=== PATIENT | female | born 1990 | race Caucasian/White ===

== ENCOUNTER 2018-09-20 05:08 | Emergency (ER) | payer OTHER ==
[~2018-09-20] VITALS: Ht 157.5 cm; Wt 48.9 kg
[2018-09-20 05:14] VITALS: BP 127/81; PULSE 74; RESP 18; Ht 157.5 cm; Wt 48.9 kg
[2018-09-20] MEDS ORDERED: ONDANSETRON (ODT) 4 MG TAB ODT STA (05:45)
--- NOTE | 2018-09-20 05:45 | ERD ---
ER Documentation Chief Complaint Chief Complaint shortness of breath x 3 hours. states been drinking etoh last night HPI Is a 27-year-old female patient who presents to the emergency room with complaint of awakening 2 hours ago with shortness of breath and some left-sided chest pain. Patient admits to drinking heavily the night before, also was being intimate with her s/o just before episode. Pt now states she feels fine and episode has resolved. Denies chronic medical problems. ROS All systems reviewed and are negative except as per history of present illness. Allergies Allergies: Coded Allergies: No Known Allergy (Unverified , 05/01/18) PMhx/Soc Hx Alcohol Use: Yes Hx Substance Use: No Hx Tobacco Use: No FmHx Family History: No diabetes, No coronary disease, No other Physical Exam Vitals Vital Signs Date Temp Pulse Resp B/P (MAP) Pulse Ox O2 O2 Flow FiO2 Time Delivery Rate 09/20/18 97.6 74 18 127/81 100 05:14 (96) Physical Exam Const: No acute distress Head: Atraumatic Eyes: Normal Conjunctiva, PERRL ENT: Normal External Ears, TM clear, no nasal discharge, Pharynx pink without petechiae, exudate, or lesions Neck: Full range of motion. No meningismus. No lymphadenopathy, no thyromegaly, no cervical spinal tenderness Resp: Clear to auscultation bilaterally, no rales, rhonchi, or wheezing Cardio: Regular rate and rhythm, no murmurs Abd: Soft, non tender, non distended. 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 I kept the patient and/or family informed of laboratory and diagnostic imaging results throughout the ED course. EKG: Read by Dr. Dr. Mcintyre, attending physician. EKG shows normal sinus rhythm at a rate of 66 bpm. No arrhythmias, acute ST elevations or T wave changes were noted. MEDICATIONS GIVEN: Zofran, PO fluids MDM: Upon reassessment patient denies shortness of breath, denies chest pain, no longer nauseated and able to drink water without vomiting. The patient is clinically well appearing and stable. Symptoms are not suggestive of cardiac ischemia, pulmonary embolus, aortic dissection, or other serious etiology. These diagnoses have been considered and excluded clinically and with additional diagnostic studies as indicated. Nonetheless, it is understood by both the patient and provider that no clinical or diagnostic assessment can entirely exclude such diseases. Chest pain precautions have been given and the patient has been advised to return for worsening symptoms or any concerns. DISPOSITION: The patient has been discharge home to follow-up with community physician. Departure Diagnosis: Primary Impression: Shortness of breath Condition: Stable Patient Instructions: Alcohol Overdose, Coping with Shortness of Breath: Controlling Stress Referrals: [facility] Additional Instructions: Thank you very much for allowing us to participate in your care. Your health and safety is our top priority at [facility]. Call your primary care doctor TOMORROW for an appointment during the next 2-4 days and bring all the information and medications prescribed. Have prescriptions filled and follow precisely the directions on the label. If the symptoms get worse and your provider is unavailable, return to the Emergency Department immediately. SACHIN WILSON NP September 20, 2018 05:45
[2018-09-20] MEDS ORDERED: ONDA4TAB14 PO (06:16)
== END 2018-09-20 06:32 | disposition home or self-care (01) ==
LOC: FTE 05:08
DX: R06.02 Shortness of breath (principal)
CPT/HCPCS: 93005; Z7502; Z7610

== ENCOUNTER 2018-11-21 16:03 | Emergency (ER) | payer OTHER ==
[~2018-11-21] VITALS: Ht 154.9 cm; Wt 49.7 kg
[~2018-11-21 16:03] MED LIST: ONDA4TAB14 PO
[2018-11-21 16:12] VITALS: Ht 154.9 cm; Wt 49.7 kg
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
[2018-11-21] MEDS ORDERED: MECL12.574 PO (16:48)
[2018-11-21] MEDS ORDERED: ACET325T33 PO (16:48)
[2018-11-21 18:40] VITALS: BP 112/66; PULSE 52; RESP 18
== END 2018-11-21 18:41 | disposition home or self-care (01) ==
LOC: FTE 16:03
DX: S09.90XA Unspecified injury of head, initial encounter (principal); R51 Headache; X58.XXXA Exposure to other specified factors, initial encounter; Y92.9 Unspecified place or not applicable
CPT/HCPCS: 70450; 81025; Z7502